=== PATIENT | male | born 1975 | race African-American/Black ===

== ENCOUNTER 2018-03-04 22:48 | Emergency (ER) | payer MEDICARE, MEDICAID ==
[~2018-03-04] VITALS: Ht 170.2 cm; Wt 72.0 kg
[~2018-03-04 22:48] MED LIST: AMLO10TA80; CARB200C4; METO-396; [UNRECOGNIZED DRUG - REMARK]; tegretol
[2018-03-04 23:12] VITALS: BP 161/83
== END 2018-03-05 04:12 | disposition left against medical advice (07) ==
LOC: ER 22:48
DX: Z53.21 Procedure and treatment not carried out due to patient leaving prior to being seen by health care provider (principal)

== ENCOUNTER 2019-08-12 12:28 | Inpatient (IN) | payer MEDICARE, MEDICAID ==
[~2019-08-12] VITALS: Ht 175.3 cm; Wt 82.1 kg
[~2019-08-12 12:28] MED LIST changes: -CARB200C4; +CARB200C7
[2019-08-12 14:01] LABS: HEMATOCRIT. 42.6 % (42.0-52.0); HEMOGLOBIN. 14.8 g/dL (14.0-18.0); MEAN CORPUSCULAR HEMOGLOBIN 32.6 pg (28.0-32.0); MEAN CORPUSCULAR VOLUME 93.8 fL (80.0-94.0); MEAN PLATELET VOLUME 7.6 fl (7.4-10.4); PLATELET 273 x1000/uL (130-400); RED BLOOD CELL COUNT 4.54 mill/uL (4.7-6.1); RED CELL DISTRIBUTION WIDTH 12.9 % (11.6-14.6)
[2019-08-12 14:06] LABS: CHLORIDE 95 mEq/L (98-107)
[2019-08-12 14:14] LABS: PHOSPHORUS 1.9 mg/dL (2.5-4.9)
[2019-08-12 14:15] LABS: CARBAMAZEPINE 5.8 ug/mL (4-12)
[2019-08-12] MEDS ORDERED: SODIUM CHLORIDE 0.9% 1,000 ML IV ONE (14:15)
[2019-08-12 14:31] LABS: CLARITY URINE CLEAR (CLEAR); COLOR URINE YELLOW (YELLOW); KETONES URINE NEGATIVE (NEGATIVE); LEUKOCYTE ESTERASE URINE TRACE (NEGATIVE); NITRITE URINE NEGATIVE (NEGATIVE); OCCULT BLOOD URINE NEGATIVE (NEGATIVE); PROTEIN URINE 1+ (NEGATIVE); SPECIFIC GRAVITY URINE 1.009 (1.005-1.030); UROBILINOGEN URINE 0.2 E.U./dL (0.2-1.0)
[2019-08-12 15:34] LABS: PLATELET ESTIMATE NORMAL
[2019-08-12] MEDS ORDERED: SODIUM CHLORIDE 0.9% 1,000 ML IV NR (15:45)
[2019-08-12] MEDS ORDERED: KETOROLAC 15MG/ML VIAL IV PRN (16:00)
[2019-08-12] MEDS ORDERED: DOCUSATE SODIUM 100MG CAPSULE PO PRN (16:00)
[2019-08-12] MEDS ORDERED: IPRATROPIUM/ALBUTEROL 0.5-3(2.5)MG/3ML NEB ORI PRN (16:00)
[2019-08-12] MEDS ORDERED: LORAZEPAM 2MG/ML CPJ IV PRN (16:00)
[2019-08-12] MEDS ORDERED: NITROGLYCERIN 0.4MG TABLET SL SL PRN (16:00)
[2019-08-12] MEDS ORDERED: GUAIFENESIN 200MG/10ML SUGAR FREE UDC PO PRN (16:00)
[2019-08-12] MEDS ORDERED: MAGNESIUM/ALUMINUM HYDROXIDE/SIMETHICONE 30ML UDC PO PRN (16:00)
[2019-08-12] MEDS ORDERED: TRAMADOL 50MG TABLET PO PRN (16:00)
[2019-08-12] MEDS ORDERED: ACETAMINOPHEN 325MG TABLET PO PRN ×2 (16:00)
[2019-08-12] MEDS ORDERED: ONDANSETRON HCL 4MG/2ML INJ IV PRN (16:00)
[2019-08-12] MEDS ORDERED: SODIUM POLYSTYRENE SULFONATE 15 G/60 ML BOT PO NR (16:15)
[2019-08-12] MEDS: SODIUM CHLORIDE 0.9% 1,000 ML IV SCH (16:20)
[2019-08-12 16:30] LABS: T4 FREE 0.77 ng/dL (0.76-1.46)
[2019-08-12] MEDS ORDERED: CEFTRIAXONE 1 G PREMIX 50 ML IV SCH (16:30)
[2019-08-12] MEDS: ENOXAPARIN 40MG/0.4ML SYR SUBCUT SCH (16:56)
[2019-08-12] MEDS ORDERED: ZOLPIDEM TARTRATE 5MG TABLET PO PRN (21:00)
[2019-08-12] MEDS ORDERED: LEVETIRACETAM 500MG PREMIX 100 ML IV SCH (21:00)
[2019-08-12 21:06] LABS: OPIATES URINE SCREEN NEGATIVE (NEGATIVE)
[2019-08-12 21:07] LABS: *AMPHETAMINES SCREEN URINE NEGATIVE (NEGATIVE); *BARBITURATES SCREEN URINE NEGATIVE (NEGATIVE); *BENZODIAZEPINES SCREEN URINE PRESUMTIVE POSITIVE (NEGATIVE); *COCAINE SCREEN URINE NEGATIVE (NEGATIVE); CANNABINOID URINE SCREEN NEGATIVE (NEGATIVE); METHADONE URINE SCREEN NEGATIVE (NEGATIVE); PHENCYCLIDINE URINE SCREEN NEGATIVE (NEGATIVE)
[2019-08-12] MEDS ORDERED: SODIUM POLYSTYRENE SULFONATE 15 G/60 ML BOT PO SCH (21:30)
[2019-08-12 22:30] VITALS: BP 132/85
[2019-08-13] MEDS: FAMOTIDINE 20MG TABLET PO SCH ×3 (00:05→21:10)
[2019-08-13] MEDS: ASCORBIC ACID 500 MG TABLET PO SCH ×3 (00:05→21:10)
[2019-08-13] MEDS: CARBAMAZEPINE 200MG TABLET PO SCH ×3 (00:05→21:10)
[2019-08-13] MEDS: LEVETIRACETAM 500MG PREMIX 100 ML IV SCH ×3 (03:15→21:06)
[2019-08-13] MEDS: SODIUM CHLORIDE 0.9% 1,000 ML IV SCH ×3 (03:17→21:59)
[2019-08-13 06:19] LABS: BASOPHILS % 0.3 % (0.0-2.0); EOSINOPHILS % 0.3 % (0.0-5.0); HEMATOCRIT. 38.2 % (42.0-52.0); HEMOGLOBIN. 13.3 g/dL (14.0-18.0); LYMPHOCYTES % 13.9 % (20.0-50.0); MEAN CORPUSCULAR HEMOGLOBIN 32.6 pg (28.0-32.0); MEAN CORPUSCULAR VOLUME 93.5 fL (80.0-94.0); MEAN PLATELET VOLUME 7.6 fl (7.4-10.4); MONOCYTES % 10.7 % (2.0-8.0); NEUTROPHILS % 74.8 % (40.0-76.0); PLATELET 254 x1000/uL (130-400); RED BLOOD CELL COUNT 4.08 mill/uL (4.7-6.1); RED CELL DISTRIBUTION WIDTH 12.8 % (11.6-14.6)
[2019-08-13 06:43] LABS: CHLORIDE 106 mEq/L (98-107)
[2019-08-13 06:52] LABS: PHOSPHORUS 2.4 mg/dL (2.5-4.9)
[2019-08-13 08:00] VITALS: BP 143/74
[2019-08-13] MEDS ORDERED: POTASSIUM CHLORIDE 20MEQ/PACKET PO SCH (09:00)
[2019-08-13] MEDS: ZINC SULFATE 220 MG ( 50 ) CAPSULE PO SCH (09:01)
[2019-08-13] MEDS ORDERED: POTASSIUM PHOS,M-BASIC-D-BASIC 20 MMOL in DEXT 5% WATER 243.3333 ML IV SCH (10:00)
[2019-08-13 12:00] VITALS: BP_SYST 106; BP_SYST 151; BP_DIAS 59; BP_DIAS 91
[2019-08-13 16:00] VITALS: BP 165/93
[2019-08-13] MEDS: ENOXAPARIN 40MG/0.4ML SYR SUBCUT SCH (16:06)
[2019-08-13] MEDS ORDERED: CEFTRIAXONE 1 G PREMIX 50 ML IV SCH ×2 (17:00)
[2019-08-13] MEDS: CLONIDINE 0.1MG TABLET PO PRN (18:16)
[2019-08-13 20:00] VITALS: BP 152/92
[2019-08-13] MEDS: CEFTRIAXONE 1,000 MG in DEXTROSE 5% WATER 50 ML IV SCH (22:21)
[2019-08-14] VITALS: BP 165/93
[2019-08-14 04:00] VITALS: BP 158/95
[2019-08-14 08:00] VITALS: BP 169/101
[2019-08-14 08:07] LABS: BASOPHILS % 0.5 % (0.0-2.0); EOSINOPHILS % 2.8 % (0.0-5.0); HEMATOCRIT. 38.8 % (42.0-52.0); HEMOGLOBIN. 12.8 g/dL (14.0-18.0); MEAN CORPUSCULAR HEMOGLOBIN 31.9 pg (28.0-32.0); MEAN PLATELET VOLUME 8.1 fl (7.4-10.4); MONOCYTES % 14.9 % (2.0-8.0); NEUTROPHILS % 55.8 % (40.0-76.0); PLATELET 166 x1000/uL (130-400); RED CELL DISTRIBUTION WIDTH 13.1 % (11.6-14.6)
[2019-08-14 08:13] LABS: CHLORIDE 101 mEq/L (98-107)
[2019-08-14 08:19] LABS: PHOSPHORUS 4.4 mg/dL (2.5-4.9)
[2019-08-14] MEDS: ZINC SULFATE 220 MG ( 50 ) CAPSULE PO SCH (08:43)
[2019-08-14] MEDS: LEVETIRACETAM 500MG PREMIX 100 ML IV SCH ×2 (08:43→21:23)
[2019-08-14] MEDS: CARBAMAZEPINE 200MG TABLET PO SCH ×2 (08:43→20:39)
[2019-08-14] MEDS: FAMOTIDINE 20MG TABLET PO SCH ×2 (08:43→20:39)
[2019-08-14] MEDS: SODIUM CHLORIDE 0.9% 1,000 ML IV SCH ×2 (08:44→17:59)
[2019-08-14] MEDS: CLONIDINE 0.1MG TABLET PO PRN (09:01)
[2019-08-14] MEDS ORDERED: POTASSIUM CHLORIDE 20MEQ/PACKET PO NR (11:30)
[2019-08-14] MEDS: ASCORBIC ACID 500 MG TABLET PO SCH ×2 (11:41→20:39)
[2019-08-14 12:00] VITALS: BP 138/88
[2019-08-14 16:00] VITALS: BP 123/74
[2019-08-14] MEDS: ENOXAPARIN 40MG/0.4ML SYR SUBCUT SCH (17:59)
[2019-08-14 20:00] VITALS: BP 154/87
[2019-08-14] MEDS: CEFTRIAXONE 1,000 MG in DEXTROSE 5% WATER 50 ML IV SCH (20:39)
[2019-08-14] MEDS: PHENYTOIN SODIUM EXTENDED 100MG CAPSULE PO SCH (20:39)
[2019-08-14 23:12] LABS: SODIUM URINE RANDOM 89 mEq/L
[2019-08-15] VITALS: BP 148/88
[2019-08-15 04:00] VITALS: BP 147/87
[2019-08-15 06:42] LABS: EOSINOPHILS % 7.5 % (0.0-5.0); HEMATOCRIT. 37.3 % (42.0-52.0); HEMOGLOBIN. 12.8 g/dL (14.0-18.0); LYMPHOCYTES % 27.5 % (20.0-50.0); MEAN CORPUSCULAR HEMOGLOBIN 32.1 pg (28.0-32.0); MEAN CORPUSCULAR VOLUME 93.6 fL (80.0-94.0); MEAN PLATELET VOLUME 7.8 fl (7.4-10.4); MONOCYTES % 13.7 % (2.0-8.0); NEUTROPHILS % 50.3 % (40.0-76.0); PLATELET 245 x1000/uL (130-400); RED BLOOD CELL COUNT 3.99 mill/uL (4.7-6.1); RED CELL DISTRIBUTION WIDTH 12.9 % (11.6-14.6)
[2019-08-15 07:09] LABS: CHLORIDE 104 mEq/L (98-107)
[2019-08-15 07:18] LABS: PHOSPHORUS 3.9 mg/dL (2.5-4.9)
[2019-08-15 08:00] VITALS: BP 149/98
[2019-08-15] MEDS: LEVETIRACETAM 500MG PREMIX 100 ML IV SCH ×2 (09:18→21:02)
[2019-08-15] MEDS: ASCORBIC ACID 500 MG TABLET PO SCH ×2 (09:29→21:12)
[2019-08-15] MEDS: ZINC SULFATE 220 MG ( 50 ) CAPSULE PO SCH (09:29)
[2019-08-15] MEDS: FAMOTIDINE 20MG TABLET PO SCH ×2 (09:29→21:12)
[2019-08-15] MEDS: CARBAMAZEPINE 200MG TABLET PO SCH ×2 (09:29→21:11)
[2019-08-15 12:00] VITALS: BP 169/82
[2019-08-15] MEDS: AMLODIPINE 2.5MG TABLET PO SCH (13:37)
[2019-08-15 16:05] VITALS: BP 151/88
[2019-08-15] MEDS: ENOXAPARIN 40MG/0.4ML SYR SUBCUT SCH (16:23)
[2019-08-15 20:00] VITALS: BP 164/97
[2019-08-15] MEDS: CEFTRIAXONE 1,000 MG in DEXTROSE 5% WATER 50 ML IV SCH (20:13)
[2019-08-15] MEDS: PHENYTOIN SODIUM EXTENDED 100MG CAPSULE PO SCH (21:11)
[2019-08-15] MEDS: CLONIDINE 0.1MG TABLET PO PRN (21:11)
[2019-08-16] VITALS: BP 157/97
[2019-08-16 04:00] VITALS: BP 148/81
[2019-08-16 06:22] LABS: EOSINOPHILS % 8.6 % (0.0-5.0); HEMATOCRIT. 37.5 % (42.0-52.0); MEAN CORPUSCULAR HEMOGLOBIN 32.3 pg (28.0-32.0); MEAN CORPUSCULAR VOLUME 93.3 fL (80.0-94.0); MEAN PLATELET VOLUME 7.7 fl (7.4-10.4); MONOCYTES % 14.9 % (2.0-8.0); NEUTROPHILS % 35.5 % (40.0-76.0); PLATELET 256 x1000/uL (130-400); RED BLOOD CELL COUNT 4.02 mill/uL (4.7-6.1); RED CELL DISTRIBUTION WIDTH 12.8 % (11.6-14.6)
[2019-08-16 08:00] VITALS: BP 154/89
[2019-08-16 09:58] LABS: CHLORIDE 96 mEq/L (98-107)
[2019-08-16 10:09] LABS: PHOSPHORUS 3.5 mg/dL (2.5-4.9)
[2019-08-16] MEDS: AMLODIPINE 2.5MG TABLET PO SCH (11:36)
[2019-08-16] MEDS: ASCORBIC ACID 500 MG TABLET PO SCH (11:36)
[2019-08-16] MEDS: CARBAMAZEPINE 200MG TABLET PO SCH (11:37)
[2019-08-16] MEDS: ENOXAPARIN 40MG/0.4ML SYR SUBCUT SCH (11:37)
[2019-08-16] MEDS: ZINC SULFATE 220 MG ( 50 ) CAPSULE PO SCH (11:37)
[2019-08-16] MEDS: FAMOTIDINE 20MG TABLET PO SCH (11:37)
[2019-08-16] MEDS: LEVETIRACETAM 500MG PREMIX 100 ML IV SCH (11:39)
[2019-08-16 12:00] VITALS: BP 153/89
[2019-08-16 16:00] VITALS: BP 147/88
[2019-08-16 18:12] VITALS: BP 147/88
== END 2019-08-16 19:20 | disposition home or self-care (01) | DRG 100 ==
LOC: ER 13:04 → EDBEDREQTM 15:10 → EDBEDREQ 15:10 → SUPCPDRO 15:55 → ENRESERV 21:15 → 5WST 22:13
PROVIDERS: ADMIT Internal Medicine; ATTEND Internal Medicine
DX: G40.909 Epilepsy, unspecified, not intractable, without status epilepticus (principal); G92 Toxic encephalopathy; E87.1 Hypo-osmolality and hyponatremia; N39.0 Urinary tract infection, site not specified; D64.9 Anemia, unspecified; E11.9 Type 2 diabetes mellitus without complications; E83.39 Other disorders of phosphorus metabolism; E83.41 Hypermagnesemia; E87.5 Hyperkalemia; I10 Essential (primary) hypertension; T42.0X5A Adverse effect of hydantoin derivatives, initial encounter; Y92.89 Other specified places as the place of occurrence of the external cause; Z83.3 Family history of diabetes mellitus; Z82.49 Family history of ischemic heart disease and other diseases of the circulatory system
CPT/HCPCS: 36415; 80048; 80053; 80061; 80156; 80185; 80305; 80320; 81003; 82088; 82533; 82962; 83036; 83735; 83935; 84100; 84300; 84439; 84443; 85025; 93970; 97162; 97166; 99285; J0696; J1650; J1953; J3490; J7030; J7060; G0480